=== PATIENT | female | born 1940 | race Caucasian/White ===

== ENCOUNTER 2016-11-29 08:16 | Outpatient (CLI) | payer MEDICARE, OTHER ==
[~2016-11-29] VITALS: Ht 165.1 cm; Wt 77.1 kg
[~2016-11-29 08:16] MED LIST: ACYC800T PO; ASCO-78 PO; ASPI-482 PO; BENZ100C PO; CETI10TA16 PO; CYAN500T17 PO; CYCL10TA2 PO; CYCL5TAB PO; ERGO80004 PO; FERR-26 PO; FLUT9.9S NS; GUAI-40 PO; GUAI100G2 PO; GUAI600T28 PO; LENA10CA PO; LOPE2TAB27 PO; METO50TA10 PO; OXYC5CAP3 PO; PAMIDRONATE IV; POTA10TA5 PO; PRAV20TA PO; SULF1TAB24 PO; WARF1TAB74 PO; ZOLP5TAB PO
[2016-11-29 08:52] VITALS: BP 95/50
[2016-11-29 08:57] LABS: BASO # 0.1 x10^3/uL (0.0-0.2); BASO % 2 % (0-3); EOS % 13 % (0-3); HEMATOCRIT 38.1 % (36.0-47.0); HEMOGLOBIN 12.3 g/dL (12.0-15.5); LYMPH # 0.8 x10^3/uL (1.0-4.8); LYMPH % 23 % (24-48); MEAN CORPUSCULAR HEMOGLOBIN 32 pg (25-35); MEAN CORPUSCULAR HGB CONC 32 g/dL (31-37); MEAN CORPUSCULAR VOLUME 98 fL (79-100); MONO % 14 % (0-9); NEUT % 48 % (31-73); PLATELET COUNT 135 x10^3/uL (140-400); RED BLOOD COUNT 3.89 x10^6/uL (3.50-5.40); RED CELL DISTRIBUTION WIDTH 16.7 % (11.5-14.5); WHITE BLOOD COUNT 3.6 x10^3/uL (4.0-11.0)
[2016-11-29 09:05] LABS: PROTHROMBIN TIME PATIENT 12.7 SEC (11.7-14.0)
[2016-11-29] MEDS ORDERED: LIDOCAINE 1% / SOD BICARB 8.4% 20 ML VIAL. IJ ONE ×2 (09:52→12:00)
[2016-11-29] MEDS ORDERED: MIDAZOLAM HCL/PF 5 MG/5 ML VIAL. ONE (10:21)
[2016-11-29] MEDS ORDERED: fentaNYL PF VIAL 250 MCG/5 ML VIAL ONE (10:22)
[2016-11-29 10:45] VITALS: BP 101/65
[2016-11-29 10:59] VITALS: BP 111/51
--- NOTE | 2016-11-29 11:02 | PDOC ---
MODERATE SEDATION ASSESSMENT RISKS/ALTERNATIVES Risks/Alternatives Risks and alternatives of this type of sedation and procedure discussed with: RISK/ALTERNATIVES: Patient H & P ON CHART H & P H & P on chart and reviewed for co-morbid conditions and appropriate labs. H&P ON CHART: Yes STATUS PREG STATUS ASSESSED: Yes MEDS/ALLERGIES REVIEWED Meds/Allergies Reviewed Medications and Allergies including time and route of recently administered narcotics and sedatives. MEDS/ALLERGIES REVIEWED: Yes ASA RATING ASA RATING: II AIRWAY ASSESSMENT Airway Assessment Airway patency, oral function limitations, presence of caps, crowns, dentures, partials, and ability to extend neck assessed. AIRWAY ASSESSMENT: Yes MALLAMPATI SCORE MALLAMPATI SCORE: II PRE-SEDATION ASSESSMENT PRE-SEDATION ASSESSMENT: Yes ALYSSA VILLA MD November 29, 2016 11:01
--- NOTE | 2016-11-29 11:03 | PDOC1 ---
History and Physical Date of Procedure Date of Admission History of Present Illness Reason for Visit Adult female with multiple myeloma Past Medical History Past Medical History see nursing assessment Current Medications Current Medications Current Medications Lidocaine/Sodium Bicarbonate (Buffered Lidocaine 1%) 20 ml STK-MED ONCE IJ ; Start 11/29/16 at 09:52; Stop 11/29/16 at 09:53; Status DC Midazolam HCl (Versed) 5 mg STK-MED ONCE .ROUTE ; Start 11/29/16 at 10:21; Stop 11/29/16 at 10:22; Status DC Fentanyl Citrate (Fentanyl 5ml Vial) 250 mcg STK-MED ONCE .ROUTE ; Start at 10:22; Stop 11/29/16 at 10:23; Status DC Active Scripts Active Reported [pamidronate 9mg/ml] 9 Mg IV QMONTH PRN Pravachol (Pravastatin Sodium) 20 Mg Tablet 1 Tab PO DAILY Revlimid (Lenalidomide) 10 Mg Capsule 10 Mg PO DAILY Guaifenesin 600 Mg Tablet.er 600 Mg PO BID Flonase Allergy Relief (Fluticasone Propionate) 9.9 Ml [place]ahan.susp 2 Sprays NS BID Ergocalciferol (Ergocalciferol (Vitamin D2)) 8,000 Unit/1 Ml Drops 8,000 Unit PO Cyclobenzaprine Hcl 10 Mg Tablet 1 Tab PO TID PRN B-12 (Cyanocobalamin (Vitamin B-12)) 500 Mcg Tablet 500 Mcg PO DAILY Cetirizine Hcl 10 Mg Tablet 1 Tab PO DAILY Aspir 81 (Aspirin) 81 Mg Tablet.dr 1 Tab PO DAILY Vitamin C (Ascorbate Calcium) 500 Mg Tablet 500 Mg PO DAILY Ambien (Zolpidem Tartrate) 5 Mg Tablet 5 Mg PO HS PRN Klor-Con 10 (Potassium Chloride) 10 Meq Tablet.er 10 Meq PO BID Allergies Allergies: Coded Allergies: No Known Allergies (Verified Allergy, Unknown, 06/28/14) Physical Exam Vital Signs Vital Signs Date Time Temp Pulse Resp B/P (MAP) Pulse Ox O2 Delivery O2 Flow Rate FiO2 11/29/16 10:45 73 16 97 Room Air 11/29/16 08:52 97.9 95/50 (65) 97.9 Other see nursing pre-op assessment Assessment Assessment Multiple myeloma Problems: Plan Plan CT Bone marrow Biopsy ALYSSA VILLA MD November 29, 2016 11:03
[2016-11-29 11:10] VITALS: BP 97/51
[2016-11-29 11:35] VITALS: BP 95/46
[2016-11-29] MEDS ORDERED: MIDAZOLAM HCL/PF 5 MG/5 ML VIAL. IV ONE (12:00)
[2016-11-29] MEDS ORDERED: fentaNYL PF VIAL 100 MCG/2 ML VIAL IV ONE (12:00)
[2016-11-29 12:13] VITALS: BP 101/45
--- NOTE | 2016-11-30 12:56 | RAD ---
Procedure: CT-guided bone marrow aspiration and biopsy Clinical Indication: 76-year-old with multiple myeloma Sedation: Conscious sedation was administered for 15 minutes. The patient was monitored by a qualified independent observer throughout the time of sedation. Please refer to the medical record for exact doses of medications utilized to achieve moderate sedation. Antibiotics: None Fluoro Time: Not applicable Contrast: None Sterility: The procedure was performed in its entirety using appropriate elements of sterile technique. Consent: The procedure was explained in its entirety to the patient or the patients designated automotive sales representative by a member of the treatment team, including a discussion of the risks, benefits and commonly accepted alternatives to the procedure, as well as the expected consequences of no therapy whatsoever. Discussion of the risks included, but was not limited to, those that are most frequent and those that are rare but possibly severe or life-threatening, as well as the possibility of unforeseen complications. Technique and Findings: Following informed consent, the patient was prepped and draped in usual sterile fashion. Preliminary CT scan of the area of interest was performed. 1% Lidocaine was used to achieve local anesthesia. Under periodic CT surveillance, an 11-gauge needle was advanced through the cortex of the posterior superior iliac spine and 2 separate 2 mL marrow aspirates were obtained and preserved on site by the pathology laboratory aide. A single 11-gauge core biopsy specimen was then obtained and preserved in formalin. The needle was then removed and hemostasis was achieved with manual compression. Complications: No immediate Impression: 1. CT-guided bone marrow aspiration and biopsy as described PQRS Compliance Statement: One or more of the following individualized dose reduction techniques were utilized for this examination: 1. Automated exposure control 2. Adjustment of the mA and/or kV according to patient size 3. Use of iterative reconstruction technique
--- NOTE | 2016-12-06 15:30 | PATHOLOGY ---
PATHOLOGY REPORT * * * * * * * * FINAL DIAGNOSIS: Peripheral smear: - Mild leukopenia with mild absolute lymphopenia and relative monocytosis and eosinophilia. - Mild thrombocytopenia. Bone marrow, aspirate smears, clot section, and core biopsy: - Variable normocellular to mildly hypocellular marrow showing trilineage hematopoiesis, relative erythroid hyperplasia, mild polyclonal plasmacytosis (5-10%) and no morphologic evidence of residual / recurrent plasma cell dyscrasia. (see comment) - MINUTE KAPPA RESTRICTED PLASMA CELL POPULATION AMONGST POLYCLONAL PLASMA CELLS DETECTED BY FLOW CYTOMETRY ONLY. (SEE COMMENT) - Adequate reticuloendothelial iron stores. COMMENT: The peripheral smear shows mild leukopenia with a mild absolute lymphopenia and relative monocytosis and eosinophilia, and mild thrombocytopenia. The bone marrow varies from normocellular to mildly hypocellular and shows a relative erythroid hyperplasia. The marrow also shows a mild plasmacytosis of approximately 5-10% plasma cells. The in-situ hybridization for kappa and lambda light chain shows a polyclonal plasmacytosis and there is no morphologic evidence of plasma cell dyscrasia. However, flow cytometry detects a minute population of monoclonal plasma cells showing kappa light chain restriction. The clinical significance of this is unclear and may represent minimal residual / recurrent involvement by plasma cell dyscrasia. Correlation with clinical history, additional laboratory data and radiographic findings is required. The case is also examined by Dr. Cassie Shepard, who concurs with the diagnosis. (JPM:mgr:csd; d/t: 12/05-06/14) Special stains performed: Iron stain (A1 and aspirate smear), immunoperoxidase stains for plasma cell antigen (A1 and B1), in-situ hybridization for kappa light chain (A1 and B1), in-situ hybridization for lambda light chain (A1 and B1) REPORT ELECTRONICALLY SIGNED BY: Cassie Shepard M.D. for Guilherme Lea M.D. DATE/TIME: 12/06/2016 15:29 * * * * * * * * MICROSCOPIC DESCRIPTION: Laboratory Data: The WBC count is 3.6 K/CMM, and the automated WBC differential reveals 48% neutrophils, 23% lymphs, 14% monos, 13% eos, and 2% baso. The RBC count is 3.89 M/CMM, hemoglobin 12.3 G/DL, hematocrit 38.1%, MCV 98 FL, MCH 32 PG, MCHC 32 G/DL, and the RDW is 16.7%. The platelet count is 135 K/CMM. Peripheral Smear: The peripheral smear is reviewed. The WBC count is mildly decreased. There is a mild absolute lymphopenia and a relative monocytosis and eosinophilia. The WBC differential reveals a predominance of segmented neutrophils, with smaller populations of lymphocytes, monocytes, and eosinophils. There are a few basophils noted. Neutrophils do not show dysplastic changes. There is no significant neutrophilic left shift. There is no leukoerythroblastic reaction. The lymphocyte population consists predominantly of small lymphocytes. A few reactive lymphocytes are noted. Red blood cells predominantly appear normochromic. Red blood cells show mild anisocytosis and range from normocytic to mildly macrocytic. Red blood cells show mild poikilocytosis with ovalocytes and occasional spiculated red blood cells noted. Platelets are mildly decreased and largely appear normal in morphology. Aspirate Smears: Three Hernandez's-stained and one iron-stained aspirate smears are examined. The smears contain multiple cellular and fatty marrow particles. There is a relative erythroid hyperplasia. Erythroid maturation predominantly appears normoblastic. Some erythroid precursors show mild megaloblastoid changes. There are no megaloblastic or overt dysplastic changes. Granulopoiesis qualitatively appears normal. There are no obvious dysplastic changes and there is no increase of blasts. Megakaryocytes are adequate in number and are of variable ploidy. Lymphocytes are not increased. There are admixed plasma cells. Plasma cells appear to comprise less than 5% of nucleated marrow cells. Some of the plasma cells appear atypical. These plasma cells are enlarged, and possess enlarged eccentric rounded nuclei containing a small nucleolus. Occasional binucleate plasma cells are noted. There are no areas of sheet-like replacement by plasma cells. There are no cells foreign to the marrow. The iron stain shows absent iron stores. Bone Marrow Biopsy and Clot Section: Sections of the bone marrow biopsy reveal a segment of bone marrow which range between 10-20% and 50% cellular. The clot section contains multiple marrow particles which range between 10-20% and 40-50% cellular. There is a relative erythroid hyperplasia. Colonies of erythroid precursors are readily identified throughout the marrow particles. There are admixed granulocytic precursors which are present in varying stages of maturation. There is no apparent increase of blasts. Megakaryocytes appear adequate and are of variable ploidy. There are scattered admixed plasma cells with no solid nodules or areas of sheet-like replacement by plasma cells noted. There no abnormal lymphoid aggregates or granulomas. There are no cells foreign to the marrow. Immunoperoxidase stains for plasma cell antigen and in situ hybridization for kappa and lambda light chain are obtained and yield the following results: Plasma cell antigen (B1): plasma cells positive distributed throughout the marrow; plasma cells comprise between 5% and 10% of nucleated marrow cells [place] MONIQUE (B1): small population of plasma cells positive with a relatively normal kappa/lambda ratio Lambda MONIQUE (B1): small population of plasma cells positive Plasma cell antigen (A1): plasma cells positive distributed throughout; plasma cells comprise between 5% and 10% of nucleated marrow cells [place] MONIQUE (A1): small population of plasma cells positive with a relatively normal kappa/lambda ratio Lambda MONIQUE (A1): small population of plasma cells positive The iron stain of the clot section shows focally adequate reticuloendothelial iron stores. No ringed sideroblasts are identified. Special Studies: Bone marrow submitted for flow cytometry has a viability of 90.8%. Granulocytes comprise 65.4% of total cells and show phenotypic evidence of maturation. Mast cells comprise 1.6% of total cells. Monocytes comprise 6.1% of total cells. CD45 dim, CD34 positive cells comprise 3.4% of total cells and are comprised of a mixture of myeloblasts (2.7% of total cells) and hematogones (0.7% of total cells). Lymphocytes comprise 11.4% of total cells. T-cells comprise 58% of lymphoid cells and show a CD4/CD8 ratio of 0.9. NK-cells comprise 24% of lymphoid cells. Mature B-cells comprise 10% of lymphoid cells and are polyclonal with a kappa:lambda ratio of 1.8. The plasma cells comprise 0.9% of total cells. There is a minute population of monoclonal plasma cells comprising 0.6% of total cells. These cells are CD19 negative, CD38 positive, CD45 negative, CD56 positive, CD138 positive, and show kappa light chain restriction. Bone marrow submitted for cytogenetic analysis shows a normal female karyotype in all cells analyzed. (JPM:mgr:csd; d/t: 12/05/16) GROSS PATHOLOGY: A. Received in formalin labeled "[place]," and additionally labeled on the requisition as, "BMA". Received is blood coagulum, measuring 3.0 x 2.2 x 0.5 cm in aggregate dimensions. The specimen is submitted entirely in cassette A1. B. Received in formalin labeled "[place]," and additionally labeled on the requisition as, "BM BX". Received is a single needle core of carmen bone, measuring 1.5 cm in length and 0.2 cm in diameter. The specimen is submitted entirely in cassette B1, following decalcification. (CAA; 11/30/2016) INITIAL CPT CODE(S): A; 53108, 41117, 01451, 83968, 32100 B; 81728, 78078, 27968, 56289, 14389 C; 87918, 15043 D; 07555 Professional services [place] [facility] [place] [address] Technical services performed by [facility] at [address] [place] [address], [address] [address]. SPECIMEN(S) RECEIVED: A.Bone marrow, clot and/or particle prep B.Bone marrow, biopsy C.Bone marrow, aspirate smears D.Peripheral smear CLINICAL HISTORY: Multiple myeloma remission PATIENT: MOON PERKINS /AGE: 108/08/1940 (Age: 76) PATIENT #: [id number] ALT CASE #: SPECIMEN COLLECTION DATE: 11/29/2016 SPECIMEN RECEIVED DATE: 11/29/2016 [facility] - [address] [place] [address] - PHONE: [phone] * * * END OF REPORT * * *
== END 2016-11-29 13:00 | disposition home or self-care (01) ==
LOC: INTRAD 08:16
PROVIDERS: ATTEND Internal Medicine Hematology & Oncology
DX: C90.00 Multiple myeloma not having achieved remission (principal); I48.91 Unspecified atrial fibrillation; E78.00 Pure hypercholesterolemia, unspecified; I10 Essential (primary) hypertension; Z90.710 Acquired absence of both cervix and uterus; Z85.3 Personal history of malignant neoplasm of breast
CPT/HCPCS: 36415; 38221; 77012; 85027; 85610; G0364; 88184; 88185; 88237; 88305; 88311; 88313; 88342; 88364; 88365; G0641

== ENCOUNTER → 2016-12-26 | Outpatient (CLI) | payer MEDICARE, OTHER ==
[2016-11-29 12:13] VITALS: BP 101/45
--- NOTE | 2016-12-26 10:17 | RAD ---
. Left lower extremity venous Doppler ultrasound History: Left lower extremity swelling. Comparison: None. Procedure: Color Doppler, spectral Doppler, and grayscale images are obtained with and without compression in the area of the common femoral vein, superficial femoral vein - femoral vein junction, main femoral vein (superficial femoral vein) and popliteal vein. Veins of the proximal calf are also imaged. Findings: There is normal duplex flow, color flow and compressibility of all visualized vein segments. No evidence of deep venous thrombosis is present. Impression: No evidence of left lower extremity deep venous thrombosis.
== END | disposition home or self-care (01) ==
LOC: US 09:14
PROVIDERS: ATTEND Internal Medicine Hematology & Oncology
DX: C90.00 Multiple myeloma not having achieved remission (principal); M79.89 Other specified soft tissue disorders
CPT/HCPCS: 93971

== ENCOUNTER 2018-06-23 13:48 | Observation (INO) | payer MEDICARE, OTHER ==
[~2018-06-23] VITALS: Ht 165.1 cm; Wt 81.6 kg
[~2018-06-23 13:48] MED LIST changes: +AMOX500C PO; -FERR-26 PO; +FERR325T14 PO; -GUAI600T28 PO; +GUAI600T79 PO; +HYDR-2761 PO; +HYDROmorphone 2 MG/ML VIAL IV PRN; +IV RINGERS,LACTATED 1000ML 1,000 ML IV SCH; +LIDOCAINE 1% PF 2 ML VIAL. ID PRN; -METO50TA10 PO; +METO50TA29 PO; +MORPHINE SULFATE 2 MG/ML VIAL. IV PRN; +ONDA4TAB7 PO; +ONDANSETRON PF 4 MG/2 ML VIAL. IV PRN; +OXYC5CAP PO; -OXYC5CAP3 PO; +POTA10TA12 PO; -POTA10TA5 PO; +PROCHLORPERAZINE 10 MG/2 ML VIAL. IV PRN; +fentaNYL PF VIAL 100 MCG/2 ML VIAL IV PRN
[2018-06-23] MEDS ORDERED: ONDANSETRON PF 4 MG/2 ML VIAL. ONE (13:51)
[2018-06-23] MEDS ORDERED: DEXAMETHASONE SOD PHOS 20 MG/5 ML VIAL. ONE (13:51)
[2018-06-23] MEDS ORDERED: PROPOFOL 20 ML IV ONE (13:51)
[2018-06-23] MEDS ORDERED: LIDOCAINE 2% PF Vial for OR 5 ML VIAL. ONE (13:51)
[2018-06-23] MEDS ORDERED: fentaNYL PF VIAL 100 MCG/2 ML VIAL ONE (13:52)
[2018-06-23] MEDS ORDERED: SUCCINYLCHOLINE 200 MG/10 ML VIAL. ONE (15:04)
[2018-06-23] MEDS ORDERED: GELATIN SPONGE SIZE 100. ONE (15:15)
[2018-06-23] MEDS ORDERED: BUPIVAC MPF-EPI 0.5%-1:200000 30 ML VIAL. ONE (15:15)
[2018-06-23] MEDS ORDERED: CHLORHEXIDINE 0.12% 15 ML MOUTHWASH. SWSP ONE (15:30)
[2018-06-23] MEDS ORDERED: PHENYLEPHRINE in 0.9% NACL PF 1 MG/10 ML SYRINGE. IV ONE (15:54)
--- NOTE | 2018-06-23 16:41 | PDOC4 ---
OPERATIVE NOTE Date: Date: Jun 23, 2018 Pre-Op Diagnosis: Multiple myeloma Gross caries # 19, 20, 28, 29 Post-Op Diagnosis: same Procedure Performed: surgical extraction of # 19, 20, 28, 29 Surgeon: angelica Anesthesia Type: nissa Blood Loss: 10ml Specimans Obtained: teeth disposed of in OR Findings: caries non restorable teeth Complications: none Operative Note: see dictation AZAEL BARILLAS DMD Jun 23, 2018 16:41
--- NOTE | 2018-06-23 16:45 | DISCH ---
DISCHARGE INSTRUCTIONS Condition on Discharge Condition on Discharge: Stable Activity After Discharge Activity Instructions for Disc: Activity as tolerated Bathing Instructions: Shower-keep dressing dry Lifting Instructions after Dis: No heavy lifting, No pulling or pushing, Do not lift >10 pounds, Add. restrict see below Driving Instructions after Dis: Do not drive today Weight Bearing Status after Di: No restrictions Diet after Discharge Diet after Discharge: Regular, Level II Dysph, Ground (soft mechanical diet, advance as tolerated) Diet Texture: Regular Wound Incision Care Wound/Incision Care: Keep wound/cast CDI Contacting the after DC Call your doctor for: If your condition worsens (Call Dr. Barillas's clinic for follow up in 3-4 weeks and with any concerns [phone]) Follow-Up Follow up with: Call Dr. Barillas's clinic for follow up in 3-4 weeks and with any concerns Follow Up With: [phone] AZAEL BARILLAS DMD Jun 23, 2018 16:45
--- NOTE | 2018-06-23 18:11 | OP ---
DATE OF SURGERY: 06/23/2018 OPERATING SERVICE: rubble placer. ATTENDING PHYSICIAN: Zack Barillas DMD. PREOPERATIVE DIAGNOSES: Multiple myeloma, atrial flutter, coronary artery disease, hyperlipidemia, peripheral neuropathy, obstructive sleep apnea, osteoarthritis and caries nonrestorable teeth numbers 19, 20, 28 and 29. BRIEF HISTORY: The patient was referred to our clinic by Dr. Gorman for extraction of aforementioned teeth 19, 20, 28 29. These teeth are carious and nonrestorable. She has multiple additional teeth that are problematic; however, given her multiple comorbidities and discussion of quality of life, these teeth were selected to be extracted as they are nonrestorable. The patient agreed with our plan. Discussion with this patient's medications including antiresorptive medications that will significantly increase her risks of nonhealing wounds. These four teeth were collected for extraction. That setting of care was escalated to the operating suite to provide the safest anesthetic for this patient. A full history and physical was performed in our clinic and the patient's permit was obtained and surgery was scheduled. ESTIMATED BLOOD LOSS: Approximately 10 mL. DRAINS PLACED: None. SPECIMEN SENT: None. Teeth were disposed in the OR. COMPLICATIONS: None noted at the time of surgery. DESCRIPTION OF PROCEDURE: After the history and physical was updated in the preoperative holding area, the patient was transported by the Anesthesia Service to the operating suite, placed in supine position. All pressure points were padded and checked. A timeout was initiated by surgical staff and all perioperative staff was in agreeance. A moistened throat pack was placed in oral cavity; approximately 20 mL of local anesthetic was placed in the proposed surgical areas. A bite block was placed carefully as she has multiple teeth that are compromised and have significant mobility and caries. A 15 blade was employed to create a full thickness mucoperiosteal flap, which was reflected buccally with a periosteal elevator. Teeth numbers 19, 20, 28 and 29 were exposed and the local dental alveolar bone was also exposed. These teeth were extracted with hand instruments. Alveoloplasty was performed and it is itchy at each site to remove any bony irregularities, sharp spots and contours and undercuts. A rongeur was employed, bone file, curettage with copious normal sterile saline. Each site was lavaged and suctioned and a Gelfoam was packed into each site and the sites were oversewn with 3-0 chromic gut suture in a running locked fashion and oversewn as needed to obtain good hemostasis. The oral cavity was then lavaged and suctioned. Moistened throat pack was then removed and the OG was passed and the stomach was decompressed and the patient was then returned to the care of Anesthesia where she was awakened and extubated without complication and transported to the PACU in stable condition. ZACK BARILLAS DMD DR: Wilman JOB#: [id number] / [id number]
[2018-06-23 21:00] VITALS: BP 128/67
[2018-06-23] MEDS ORDERED: HYDROcodone/APAP 5/325MG 1 TAB TABLET PO PRN ×2 (22:45→23:00)
[2018-06-23] MEDS ORDERED: MORPHINE SULFATE 2 MG/ML VIAL. IV PRN (22:45)
[2018-06-23 23:00] VITALS: BP 126/73
[2018-06-23] MEDS ORDERED: PAMIDRONATE IV PRN (23:00)
[2018-06-23] MEDS ORDERED: ONDANSETRON ODT 4 MG TAB.RAPDIS. PO PRN (23:00)
[2018-06-23] MEDS ORDERED: CYCLOBENZAPRINE 10 MG TABLET. PO PRN (23:00)
[2018-06-23] MEDS ORDERED: ZOLPIDEM 5 MG TABLET. PO PRN (23:00)
[2018-06-24 03:00] VITALS: BP 111/65
[2018-06-24 07:00] VITALS: BP 129/58
[2018-06-24 08:59] LABS: BASO % 1 % (0-3); EOS % 0 % (0-3); HEMOGLOBIN 13.4 g/dL (12.0-15.5); LYMPH # 1.3 x10^3/uL (1.0-4.8); LYMPH % 21 % (24-48); MEAN CORPUSCULAR HEMOGLOBIN 33 pg (25-35); MEAN CORPUSCULAR HGB CONC 34 g/dL (31-37); MEAN CORPUSCULAR VOLUME 97 fL (79-100); MONO # 0.2 x10^3/uL (0.0-1.1); MONO % 4 % (0-9); NEUT # 4.4 x10^3uL (1.8-7.7); NEUT % 74 % (31-73); PLATELET COUNT 241 x10^3/uL (140-400); RED BLOOD COUNT 4.04 x10^6/uL (3.50-5.40); RED CELL DISTRIBUTION WIDTH 13.9 % (11.5-14.5)
[2018-06-24] MEDS ORDERED: ASCORBIC ACID 500 MG TABLET PO SCH (09:00)
[2018-06-24] MEDS ORDERED: ASPIRIN ENTERIC COATED 81 MG TABLET.DR. PO SCH (09:00)
[2018-06-24] MEDS ORDERED: CETIRIZINE HCL 10 MG TABLET. PO SCH (09:00)
[2018-06-24] MEDS ORDERED: ACYCLOVIR 200 MG CAPSULE. PO SCH (09:00)
[2018-06-24] MEDS ORDERED: CYANOCOBALAMIN (VITAMIN B-12) 1,000 MCG TABLET. PO SCH (09:00)
[2018-06-24] MEDS ORDERED: FLUTICASONE 50MCG/NASAL SPRAY 16GM BOTTLE. NS SCH (09:00)
[2018-06-24 09:28] LABS: ALBUMIN 3.2 g/dL (3.4-5.0); ALBUMIN/GLOBULIN RATIO 0.9 (1.0-1.7); CALCIUM 9.5 mg/dL (8.5-10.1); CREATININE 0.8 mg/dL (0.6-1.0); GFR 69.4; TOTAL PROTEIN 6.7 g/dL (6.4-8.2)
[2018-06-24 11:00] VITALS: BP 158/62
--- NOTE | 2018-06-24 12:20 | SSS ---
ADMIT DATE: DATE OF DISCHARGE: 06/24. CHIEF COMPLAINT: Status post tooth extractions. HISTORY OF PRESENT ILLNESS: The patient is a pleasant 77-year-old female who had 4 teeth extracted last night. They called me while I was international freight forwarder last night and explained that she was still in the OR area and was not waking up much. They asked if we could observe her overnight. This morning, she is better. She wants to go home. We plan to discharge. PAST MEDICAL HISTORY: Allergic rhinitis, muscle spasms, hyperlipidemia, chronic pain, arthritis, insomnia, anemia. ALLERGIES: SULFA. FAMILY HISTORY: Hypertension. SOCIAL HISTORY: She is retired. She used to be in the [employer]. She does not drink, smoke or take drugs. MEDICATIONS: Reviewed. She is on 14 including cetirizine, acyclovir, Flexeril, Pravachol, aspirin, hydrocodone, Ambien, guaifenesin, fluticasone, Zofran and vitamins. REVIEW OF SYSTEMS: GENERAL: No history of weight change, weakness or fevers. SKIN: No bruising, hair changes or rashes. EYES: No blurred, double or loss of vision. NOSE AND THROAT: She complains of mouth pain. HEART: No history of palpitations, chest pain or shortness of breath on exertion. LUNGS: Denies cough, hemoptysis, wheezing or shortness of breath. GASTROINTESTINAL: Denies changes in appetite, nausea, vomiting, diarrhea or constipation. GENITOURINARY: No history of frequency, urgency, hesitancy or nocturia. NEUROLOGIC: Denies history of numbness, tingling, tremor or weakness. PSYCHIATRIC: No history of panic, anxiety or depression. ENDOCRINE: No history of heat or cold intolerance, polyuria or polydipsia. EXTREMITIES: Denies muscle weakness, joint pain, pain on walking or stiffness. PHYSICAL EXAMINATION: VITAL SIGNS: Temperature afebrile, pulse 92, respirations 16, blood pressure 158/62. GENERAL: She is alert, cooperative, requesting discharge. HEART: Normal S1, S2. LUNGS: Clear. ABDOMEN: Soft. EXTREMITIES: No edema. SKIN: No rash. ENDOCRINE: No thyromegaly. LYMPHATICS: No cervical nodes. HEMATOPOIETIC: No bruising. NEUROLOGICAL: She is moving all extremities. PSYCHIATRIC: She is stable. HEENT: She has several teeth that have been extracted. Oral mucosa is moist. LABORATORY DATA: White count is 6. ASSESSMENT AND PLAN: Postop teeth extractions. We will go ahead and discharge and have her see family doctor in a week. DISPOSITION: Home. ACTIVITY: As tolerated. DIET: Low sodium. MEDICATIONS: Please see the MRAD. TOTAL TIME: 31 minutes. NIAL Ginny JURADO DO DR: JAIMEE/eliezer JOB#: [id number] / [id number]
[2018-06-24] MEDS ORDERED: ATORVASTATIN CALCIUM 10 MG TABLET. PO SCH (21:00)
== END 2018-06-24 12:25 | disposition home or self-care (01) ==
LOC: SURG 13:48 → 4 NORTH 19:30
PROVIDERS: ADMIT Internal Medicine; ATTEND Dentist Oral and Maxillofacial Surgery
DX: K08.89 Other specified disorders of teeth and supporting structures (principal); E78.5 Hyperlipidemia, unspecified; D64.9 Anemia, unspecified; G89.29 Other chronic pain; M19.90 Unspecified osteoarthritis, unspecified site; G47.00 Insomnia, unspecified; J30.9 Allergic rhinitis, unspecified; M62.838 Other muscle spasm; Z82.49 Family history of ischemic heart disease and other diseases of the circulatory system; I48.92 Unspecified atrial flutter; I25.10 Atherosclerotic heart disease of native coronary artery without angina pectoris; G62.9 Polyneuropathy, unspecified; G47.33 Obstructive sleep apnea (adult) (pediatric); C90.00 Multiple myeloma not having achieved remission
CPT/HCPCS: 36415; 41874; 41899; 80053; 85025; A7015; G0378; G0379; J0330; J0690; J1100; J2001; J2370; J2405; J2704; J3010; J3490; J7120